=== PATIENT | male | born 1955 | race Caucasian/White ===

== ENCOUNTER 2020-02-17 17:21 | Emergency (ER) | payer SELFPAY ==
[~2020-02-17] VITALS: Ht 167.6 cm; Wt 77.1 kg
[2020-02-17 17:30] VITALS: BP 127/84
--- NOTE | 2020-02-17 17:30 | NUR ---
BIBA FROM HOME C/O RIGHT KNEE PAIN 9 FOR A MONTH , AOX4 , AFIBRILE , AMBULATORY WITH ASSISTANCE . NO ROM RIGHT KNEE NOTED . PMHXS PTSD , HTN.
[2020-02-17] MEDS ORDERED: MORPHINE SULFATE 4 MG/ML SYR IM ONE (18:00)
--- NOTE | 2020-02-17 18:09 | NUR ---
JAMIE SCHREIBER AT BEDSIDE EVALUATING PT.
--- NOTE | 2020-02-17 18:31 | NUR ---
dr zhang at bedside evaluating pt.
[2020-02-17 19:02] VITALS: BP 127/84
--- NOTE | 2020-02-17 19:02 | NUR ---
PT COMFORTABLE IN BED SNACKING , SIDE RAILS UP X1 AND LOCK.
--- NOTE | 2020-02-17 19:03 | NUR ---
Patient discharged with v/s stable. Written and verbal after care instructions given and explained regarding knee pain . Patient alert, oriented and verbalized understanding of instructions. Ambulatory with steady gait. All questions addressed prior to discharge. ID band removed. Patient advised to follow up with PMD. Rx of norco given. Patient educated on indication of medication including possible reaction and side effects. Opportunity to ask questions provided and answered.
--- NOTE | 2020-02-17 19:15 | NUR ---
GAVE REPORT TO ANTHONY ELLIS REGARDING PT STATUS PT STILL IN BED SNACKING.
== END 2020-02-17 19:03 | disposition home or self-care (01) ==
LOC: MED 17:21
DX: G89.29 Other chronic pain (principal); M25.562 Pain in left knee; M25.561 Pain in right knee; I10 Essential (primary) hypertension; Z88.6 Allergy status to analgesic agent
CPT/HCPCS: 96372; 99283; J2270